=== PATIENT | female | born 1990 | race Caucasian/White ===

== ENCOUNTER 2016-09-17 12:05 | Inpatient (IN) | payer MEDICAID ==
[~2016-09-17] VITALS: Ht 172.7 cm; Wt 59.4 kg
[~2016-09-17 12:05] MED LIST: CIPR-260 PO; QUET100T33 PO
[2016-09-17 12:29] VITALS: BP 122/71; PULSE 111; RESP 18; TEMP 97.9; O2SAT 99
--- NOTE | 2016-09-17 13:40 | NUR ---
Patient to ER bed 5 to gown for evaluation. Side rails up Report given to Phillip DORANTES.
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
[2016-09-17 14:37] LABS: BASOPHILS % (AUTO) 0.5 % (0.0-2.0); EOSINOPHILS # (AUTO) 0.3 K/uL (0.0-0.4); EOSINOPHILS % (AUTO) 4.1 % (0.0-4.0); HEMOGLOBIN 12.7 g/dL (12.0-16.0); LYMPHOCYTES # (AUTO) 2.1 K/uL (1.0-5.5); LYMPHOCYTES % (AUTO) 25.3 % (20.5-51.5); MEAN CORPUSCULAR HEMOGLOBIN 30 pg (27-31); MEAN CORPUSCULAR HGB CONC 33 % (32-36); MEAN CORPUSCULAR VOLUME 90 fL (79.0-98.0); MONOCYTES # (AUTO) 0.6 K/uL (0.0-1.0); MONOCYTES % (AUTO) 7.4 % (1.7-9.3); NEUTROPHILS # (AUTO) 5.2 K/uL (1.8-7.7); NEUTROPHILS % (AUTO) 62.7 % (40.0-70.0); PLATELET COUNT (AUTO) 231 K/uL (130-430); RED CELL DISTRIBUTION WIDTH 13.1 % (9.0-15.0); WHITE BLOOD COUNT (AUTO) 8.2 K/uL (4.8-10.8)
[2016-09-17 14:49] LABS: ACETAMINOPHEN < 1 ug/mL (1-30); ANION GAP 3 (5-15); CALCIUM 8.8 mg/dL (8.4-11.0); CHLORIDE 111 mmol/L (98-107); GLUCOSE 84 mg/dL (70-99); POTASSIUM 3.5 mmol/L (3.5-5.1); SODIUM SERUM 142 mmol/L (136-145); UREA NITROGEN, BLOOD 11 mg/dL (8-21)
[2016-09-17 14:54] LABS: ALANINE AMINOTRANSFERASE 26 U/L (12-78); ASPARTATE AMINOTRANSFERASE 22 U/L (10-37); SALICYLATE 2 mg/dL (3-30); TOTAL BILIRUBIN 0.4 mg/dL (0.0-1.0); TOTAL PROTEIN, SERUM 7.1 g/dL (6.4-8.3)
[2016-09-17 14:56] LABS: GFR AFRICAN AMERICAN 110 mL/min (>90)
--- NOTE | 2016-09-17 15:00 | NUR ---
Pt calm, cooperative, denies c/o pain or discomfort, no needs verbalized at this time.
[2016-09-17 15:02] LABS: ALCOHOL, BLOOD 10 mg/dL (<10)
[2016-09-17] MEDS ORDERED: HALOPERIDOL LACTATE 5 MG/ML VIAL IM ONE (15:15)
[2016-09-17 15:23] LABS: BILIRUBIN,URINE NEGATIVE (NEGATIVE); BLOOD, URINE 3+ (NEGATIVE); COLOR,URINE YELLOW (YELLOW); GLUCOSE,URINE NEGATIVE (NEGATIVE); KETONES,URINE NEGATIVE (NEGATIVE); LEUKOCYTE ESTERASE ,URINE TRACE (NEGATIVE); NITRITE, URINE NEGATIVE (NEGATIVE); PROTEIN URINE NEGATIVE (NEGATIVE); UROBILINOGEN,URINE 0.2 (0.2-1.0)
[2016-09-17 15:33] LABS: CLARITY/URINE HAZY (CLEAR)
[2016-09-17 15:35] LABS: BACTERIA,URINE FEW /HPF (None Seen); MUCUS,URINE None Seen /LPF (None Seen); RBC,URINE 0-3 /HPF (0-3); URINE AMORPHOUS PHOSPHATES 3+ /HPF (None Seen)
[2016-09-17 15:36] LABS: BARBITURATE, URINE NEGATIVE (NEG <=200); BENZODIAZEPINE, URINE NEGATIVE (NEG <=150); CANNABINOID, URINE NEGATIVE (NEG <=50); COCAINE, URINE NEGATIVE (NEG <=150); METHAMPHETAMINES SCREEN,URINE NEGATIVE (NEG <=500); OPIATE, URINE NEGATIVE (NEG <=100); PHENCYCLIDINE SCREEN,URINE NEGATIVE (NEG <=25); UR TRICYCLIC ANTIDEPRESSANTS NEGATIVE (NEG <=300); URINE AMPHETAMINE POSITIVE (NEG <=500); URINE METHADONE NEGATIVE (NEG <=200); URINE OXYCODONE SCREEN NEGATIVE (NEG <=100); URINE PROPOXYPHENE SCREEN NEGATIVE (NEG <=300)
[2016-09-17] MEDS ORDERED: LORazepam 2 MG/ML VIAL (FOR ER USE) IVP ONE (15:45)
--- NOTE | 2016-09-17 16:15 | NUR ---
Pt to CT via stretcher.
--- NOTE | 2016-09-17 16:28 | NUR ---
Pt returns from CT in stable condition. No needs verbalized at this time.
--- NOTE | 2016-09-17 16:30 | NUR ---
Pt calm, cooperative, denies c/o pain or discomfort, no needs verbalized at this time.
[2016-09-17] MEDS ORDERED: cefTRIAXone 1 GM IVPB PREMIX 50 ML IV ONE (17:15)
--- NOTE | 2016-09-17 18:00 | NUR ---
Pt resting quietly with eyes closed. Respirations even and non-labored.
--- NOTE | 2016-09-17 19:10 | NUR ---
Pt report given to JOSE E Spears.
--- NOTE | 2016-09-17 20:28 | NUR ---
pt's father, , called at [phone] to ask if he is able to pick the pt up, stated that " I don't want to pick her up, there is no other person to pick her up. We have restraint order against her." then hung up. No other person avaiable according to pt
--- NOTE | 2016-09-17 21:08 | NUR ---
pt in bed , appeared resting comfortably. VSS, will continue to monitor
--- NOTE | 2016-09-17 22:15 | NUR ---
Pt in bed, appeared resting comfortably. Will continue to monitor
--- NOTE | 2016-09-17 23:45 | NUR ---
Care attended, needs assessed. Pt stated she feels comfortable at this time
--- NOTE | 2016-09-18 00:02 | NUR ---
pt in bed appeared resting comfortably. No sign of distress
--- NOTE | 2016-09-18 01:30 | NUR ---
Pt given food and refreshment upon request. no distress at this time
--- NOTE | 2016-09-18 02:45 | NUR ---
VSS, pt in bed resting comfortably.
--- NOTE | 2016-09-18 04:47 | NUR ---
No distress noted at this time
--- NOTE | 2016-09-18 07:00 | NUR ---
Patient on continous video monitor at nurses station.
--- NOTE | 2016-09-18 07:17 | NUR ---
Clarita red in [facility] - 09/18/16 at 1015 by ANA Stable condition, ate safety breakfast tray.
--- NOTE | 2016-09-18 07:20 | NUR ---
Laying in bed, stable. No suicidal or homicidal ideation per patient or noted. Patient calm and cooperative.
--- NOTE | 2016-09-18 08:21 | NUR ---
Sleeping in bed, rise and fall of chest noted, monitoring closely.
--- NOTE | 2016-09-18 10:00 | NUR ---
Patient attempted to leave ER through ambulance exit, patient agreed to return to room with ease, Dr. Magana spoke with patient. Security called. Remaining with patient for safety. No suicidal or homicidal ideation per patient or noted. Patient calm and cooperative.
--- NOTE | 2016-09-18 10:03 | NUR ---
Security at bedside, remaining with patient.
--- NOTE | 2016-09-18 10:10 | NUR ---
PET personnel evaluating patient. Security at bedside. Patient calm and cooperative.
--- NOTE | 2016-09-18 10:30 | NUR ---
Note neda in EDM - 09/18/16 at 1123 by ANA PET personnel placed patient on hold due to danger to self. No suicidal or homicidal ideation per patient or noted. Patient calm and cooperative. Security called to wand patient.
--- NOTE | 2016-09-18 10:45 | NUR ---
PET personnel placed patient on hold due to danger to self. No suicidal or homicidal ideation per patient or noted. Patient calm and cooperative. Room inspected and full suicide precautions in place. Suicide risk/lethality asssessment, patient observation status assessment and patient and room/enviroment safety checklist documented and placed in chart (see for full precautions). Security called to wand patient.
--- NOTE | 2016-09-18 10:47 | NUR ---
Patient remains on continuous video monitor.
--- NOTE | 2016-09-18 10:50 | NUR ---
Per Dr. Magana, IV to remain for precautionary measure. Patient not attempting to manipulate site. Continous monitoring.
--- NOTE | 2016-09-18 11:26 | NUR ---
Security present to wand patient, no contraband found.
--- NOTE | 2016-09-18 12:28 | NUR ---
Safety tray (regular diet) ordered for lunch for patient. Okay with .
--- NOTE | 2016-09-18 12:48 | NUR ---
Patient ate 100% of lunch tray, removed immediately after. No suicidal or homicidal ideation per patient or noted. Patient calm and cooperative
--- NOTE | 2016-09-18 14:20 | NUR ---
Patient sleeping in bed, arousable to name. No distress noted.
--- NOTE | 2016-09-18 15:00 | NUR ---
Laying in bed, calm and cooperative. No suicidal or homicidal ideation per patient or noted.
--- NOTE | 2016-09-18 15:43 | NUR ---
Patient states does not take any medications at home.
--- NOTE | 2016-09-18 15:55 | NUR ---
Patient will be admitted to care of Dr. Watson. Will go to ICU 4. Belongings list completed. Summary report printed. Report given at bedside to Renaldo DORANTES
--- NOTE | 2016-09-18 16:15 | NUR ---
ADMIT FROM ER ADULT FEMALE ADMITTED FROM ER TO ICU RM 4. AWAKE, ALERT, ORIENTED. CONVERSATION IS FRAGMENTED, STATES PEOPLE "HAVE BEEN STICKING THINGS UP THERE". TALKS ALMOST CONTINUALLY. HAD AN 3 WEEKS AGO AND NOW "PEOPLE HAVE BEEN STICKING THINGS INTO MY BREASTS." HAS BEEN AT A "MISSION" THAT "THEY DON'T HAVE ANYBODY IN MY AGE GROUP." DENIES PAIN AT THIS TIME. ORIENTED TO CALL-LIGHT AND ROOM. REQUESTED CANDY, INFORMED THAT I WILL ASK DIETARY FOR CAKE FOR HER TO EAT AT DINNER. ASSISTED UP TO BATHROOM TO URINATE.
[2016-09-18 17:00] VITALS: BP 131/72; PULSE 76; RESP 20; TEMP 98.7
[2016-09-18 17:02] VITALS: BP 131/72; PULSE 76; RESP 20; TEMP 98.7
--- NOTE | 2016-09-18 17:30 | NUR ---
OOB OOB TO COMMODE W ASSIST, GAIT IS STEADY. VOIDING WITHOUT DIFFICULTY, NO C/O BURNING. SAT AT EDGE OF BED FOR MEAL. ABLE TO FEED SELF, NO DIFFICULTY SWALLOWING.
--- NOTE | 2016-09-18 17:36 | NUR ---
Note neda in ED - 09/18/16 at 1737 by ANA Patient eat 100% of lunch tray, removed immediately after. No suicidal or homicidal ideation per patient or noted. Patient calm and cooperative
[2016-09-18] MEDS: cefTRIAXone 1 GM in D5W 50 ML IV SCH (18:30)
[2016-09-18] MEDS ORDERED: LORazepam 2 MG/ML VIAL IVP PRN ×2 (18:45)
[2016-09-18 19:00] VITALS: BP 112/73; PULSE 63; RESP 20; TEMP 98.2; O2SAT 99
--- NOTE | 2016-09-18 19:10 | NUR ---
REPORT REPORT GIVEN TO NIGHT NURSE. RESTING QUIETLY.
--- NOTE | 2016-09-18 19:30 | NUR ---
VS PT IS HERE FOR OBSERVATION AND IS NOT ON THE MONITOR, VS WILL BE Q4HR. Addendum: 09/19/16 at 0331 by Barbara Molina RN CORRECTION: PT IS HERE FOR DIRECT OBSERVATION
--- NOTE | 2016-09-18 19:30 | NUR ---
ASSESSMENT PT IS HERE FOR DIRECT OBSERVATION, NOT ON SUICIDE WATCH, ICU SHIFT ASSESSMENT WILL BE DONE ONCE PER SHIFT.
--- NOTE | 2016-09-18 19:53 | NUR ---
Called Dr. Dutta for consult. Nurse is aware.
--- NOTE | 2016-09-18 20:00 | NUR ---
pt.assessed.mother providing further history;medical,social,psych.pt.followed mother,nursing out of room. appears hyper vigilant.pt.presents hallucinations:presents questions with no basis in reality.i am reorienting pt.to place,time,event.pt.returned to the bed.iv access:located in the lt.antecubital.iv access locked. call light placed w/in pt's reach.
[2016-09-18 20:01] VITALS: BP 112/73; PULSE 63; RESP 20; TEMP 98.7
[2016-09-18] MEDS ORDERED: cefTRIAXone 1 GM IVPB PREMIX 50 ML IV ONE (20:03)
--- NOTE | 2016-09-18 20:30 | NUR ---
pt.ambulated to the toilet:unassisted but supervised.curtain drawn to provide privacy:nursing able to visually assess the activity of the pt.curtained opened fully.pt.returned to bed:supervised gait.pt.requested snacks.i have procured and provided the snacks;i mentioned to the pt.snacks are available to her throught the shift.pt.understood and appreciated the information.call light place w/in the pt's reach.
[2016-09-18] MEDS: DOXYCYCLINE HYCLATE 100 MG CAPSULE PO SCH (20:34)
[2016-09-18] MEDS ORDERED: DOXYCYCLINE HYCLATE 100 MG CAPSULE ONE (20:39)
--- NOTE | 2016-09-18 21:00 | NUR ---
pt.ordered to recieve rocephin;ivpb,vibramycin:po.henry;bradlyg-supervisor engine assembly assisted in procuring the medications. i have applied an iv extention to iv access:i provided the objective of the iv access extention to the pt. prior to applying the devise.pt.has remain calm;affect.i have administered rocephin ivpb,vibramycin po and have provided the medicinal explanation for the medications.pt.attentive,amenable to receive the medications.
--- NOTE | 2016-09-18 22:30 | NUR ---
pt.ambulated to the toilet:gait supervised.curtain drawn to provide privacy.nursing able to visually assess the activity of the pt.curtain opened fully.pt.returned to the bed;gait supervised.no request at this hour.call light placed w/in the pt's reach.
--- NOTE | 2016-09-19 | NUR ---
pt.assessed.pt.presents quiescent affect;calm,asleep.v/s refused per pt.o2 via room air.no distress /discomfort manifested.iv access:remains Located :lt.antecubital.call light w/in pt's reach.
--- NOTE | 2016-09-19 01:15 | NUR ---
pt.ambulated to the toilet.gait assessed.curtain drawn for privacy;able to visually assess activity of pt. pt.returned to the bed;unassisted;nursing supervised return.pt.consumed po liquids.returned to sleep. inquired if the pt.presents any request:pt.nodded head:gesturing no.call light palced w/in pt's reach.
--- NOTE | 2016-09-19 02:00 | NUR ---
ASSUMED CARE ASSUMED CARE OF PT, REPORT RECEIVED AT BEDSIDE FROM JOSE E RDZ.
[2016-09-19 04:00] VITALS: BP 104/68; PULSE 71; RESP 18; TEMP 99.6; O2SAT 97
[2016-09-19 06:54] LABS: BASOPHILS % (AUTO) 0.5 % (0.0-2.0); EOSINOPHILS # (AUTO) 0.3 K/uL (0.0-0.4); HEMATOCRIT 38.3 % (36-48); HEMOGLOBIN 13.2 g/dL (12.0-16.0); LYMPHOCYTES # (AUTO) 2.1 K/uL (1.0-5.5); LYMPHOCYTES % (AUTO) 34.3 % (20.5-51.5); MEAN CORPUSCULAR HEMOGLOBIN 31 pg (27-31); MEAN CORPUSCULAR HGB CONC 35 % (32-36); MEAN CORPUSCULAR VOLUME 91 fL (79.0-98.0); MONOCYTES # (AUTO) 0.6 K/uL (0.0-1.0); MONOCYTES % (AUTO) 9.2 % (1.7-9.3); NEUTROPHILS # (AUTO) 3.1 K/uL (1.8-7.7); PLATELET COUNT (AUTO) 206 K/uL (130-430); RED BLOOD CELL COUNT(AUTO) 4.23 MIL/uL (4.2-6.2); RED CELL DISTRIBUTION WIDTH 12.9 % (9.0-15.0)
[2016-09-19 06:58] LABS: WHITE BLOOD COUNT (AUTO) 6.1 K/uL (4.8-10.8)
--- NOTE | 2016-09-19 07:21 | NUR ---
CLOSING ALL NEEDS MET. ENDORSED CARE TO DAY NURSE JOSE E RAINES.
[2016-09-19 07:23] LABS: ALBUMIN 3.5 g/dL (3.4-4.8); CALCIUM 8.6 mg/dL (8.4-11.0); CREATININE 0.79 mg/dL (0.55-1.30); FREE T4 (FREE THYROXINE) 0.7 ng/dL (0.6-1.6); POTASSIUM 4.1 mmol/L (3.5-5.1); THYROID STIMULATING HORMONE 0.21 uIu/mL (0.34-4.82); TOTAL BILIRUBIN 0.2 mg/dL (0.0-1.0); TOTAL PROTEIN, SERUM 6.5 g/dL (6.4-8.3)
[2016-09-19 08:00] VITALS: BP 113/62; PULSE 71; RESP 18; TEMP 98.1; O2SAT 97
--- NOTE | 2016-09-19 08:00 | NUR ---
ASSESSMENT Patient in bed, Alert and responds well. Verbalizes needs. Vital signs within normal limits. Patient was able to ambulate without assistance. No apparent distress.Patient admitted with complaint of pelvic pain. Patient denies discomfort at this hour. Advised patient to increase fluids for bladder xray.
--- NOTE | 2016-09-19 10:29 | NUR ---
MD Dr. Watson came in and examine.
--- NOTE | 2016-09-19 11:03 | NUR ---
consult for dr. bruce called spoke to maddie dialed [phone]
[2016-09-19 11:34] LABS: FREE T4 (FREE THYROXINE) 0.7 ng/dL (0.6-1.6); THYROID STIMULATING HORMONE 0.18 uIu/mL (0.34-4.82)
[2016-09-19 12:00] VITALS: BP 100/60; PULSE 60; RESP 16; TEMP 99; O2SAT 97
[2016-09-19] MEDS: DOXYCYCLINE HYCLATE 100 MG CAPSULE PO SCH ×2 (12:40→21:11)
--- NOTE | 2016-09-19 13:00 | NUR ---
NUTRITION Patient ate lunch and consumed 100% of the meal.
[2016-09-19 16:00] VITALS: BP 113/69; PULSE 66; RESP 15; TEMP 98.6; O2SAT 96
--- NOTE | 2016-09-19 16:00 | NUR ---
ASSESSMENT Patient was feeling anxious and worried. She wanted to go outside and smoke cigarettes. Advised patient to eat some snack instead of smoking. Verbalized agreement to conversation. Stated shes having flashbacks. Vital signs within normal limits. Continued monitoring for self harm.
[2016-09-19] MEDS: cefTRIAXone 1 GM in D5W 50 ML IV SCH (18:03)
--- NOTE | 2016-09-19 18:10 | NUR ---
DIET. SERVED DINNER TRAY, EAGERLY SAT UPRIGHT WHILE IN BED, APPETITE GOOD, NEEDS ATTENDED, CONTINUE TO MONITOR.
--- NOTE | 2016-09-19 19:45 | NUR ---
PM ASSESSMENT PT A/OX4, CONFUSED AT TIMES, EASILY AROUSABLE AND COOPERATIVE. NO DISTRESS. PT HAS BATHROOM PRIVILEGES. AMBULATES W/ STEADY GAIT. SKIN INTACT. IV SITE ON LT AC 20G SL, INTACT AND PATENT. PT ON DIRECT OBSERVATION. POC DISCUSSED, PT STATED UNDERSTANDING. SAFETY PRECAUTIONS IN PLACE, WILL CONTINUE TO MONITOR.
[2016-09-19 20:00] VITALS: BP 101/50; PULSE 62; RESP 18; TEMP 99.6; O2SAT 96
[2016-09-20] VITALS: BP 100/52; PULSE 55; RESP 16; TEMP 98.5; O2SAT 98
--- NOTE | 2016-09-20 01:30 | NUR ---
RN ROUNDS PT SLEEPING, CHEST RISING AND FALLING, PT COOPERATIVE. SAFETY PRECAUTIONS IN PLACE, WILL CONTINUE TO MONITOR.
[2016-09-20 04:00] VITALS: BP 119/62; PULSE 55; RESP 16; TEMP 99.8; O2SAT 95
--- NOTE | 2016-09-20 07:09 | NUR ---
CLOSING ALL NEEDS MET. ENDORSED CARE TO DAY NURSE JOSE E RAINES.
[2016-09-20 08:00] VITALS: BP 99/71; PULSE 60; RESP 18; TEMP 99.3; O2SAT 97
--- NOTE | 2016-09-20 08:00 | NUR ---
AM ASSESSMENT. PT SEEN GETTING BACK TO BED FROM THE COMMODE. SHE STOPPED BY HER BED WHEN APPROACHED. PROVIDED CLEAN SHEETS, GOWN, WET TOWELS FOR HYGIENE, "I WANT TO GET MY LUGGAGE", "I HAVE MY MONEY THERE", PT STATED. PT HAS THOUGHT OF GOING HOME. EDUCATED PT ON PLAN OF CARE. PT CALMLY WENT TO BED THEN PICKED UP THE TOWELS.
[2016-09-20] MEDS: DOXYCYCLINE HYCLATE 100 MG CAPSULE PO SCH ×2 (08:36→21:00)
--- NOTE | 2016-09-20 10:09 | NUR ---
Social Service Note: Pt referred to social services director by nursing for suicide risk. Pt was placed on a 5150 by PET social media assistant for Danger to Self and Gravely Disabled Adult. Pt is not currently medically clear and has no order to be transferred. Pt is [facility] Presumptive; pt will need to be transferred to an inpatient psychiatric facility that accepts [facility]. Pt's 5150 was written 09/18/16 at 1030. PIPE WRAPPING MACHINE OPERATOR will remain available and will assist with pt's transfer once medically clear.
--- NOTE | 2016-09-20 11:09 | NUR ---
Pt sleeping Pt. remains calm with eyes closed. No signs of distress noted. Rise and fall of chest noted.
[2016-09-20 12:00] VITALS: BP 106/6; PULSE 65; RESP 18; TEMP 98.7; O2SAT 97
--- NOTE | 2016-09-20 14:06 | NUR ---
Social Service Note Received discharge to psychiatric facility order. Currently working on finding an accepting facility.
--- NOTE | 2016-09-20 14:17 | NUR ---
NURSING. PT. ALERT AND RESTING IN BED. PT. DENIES PAIN AND ASKED FOR AFTERNOON SNACK. PATIENT PROVIDED WITH 2 OUNCES OF OJ AND SOME CRACKERS. PT. HAS NO COMPLAINTS OR DISCOMFORT.
--- NOTE | 2016-09-20 15:21 | NUR ---
Auto Parts Clerk Note FOUNDER PRESIDENT AND CEO phoned all [facility] accepting facilities. None had beds available other than [facility], p [phone] f [phone]. They have had several discharges today and are in the process of intake review. FOUNDER PRESIDENT AND CEO faxed patient's paperwork. [facility] should know by 7pm. FOUNDER PRESIDENT AND CEO requested they phone ICU nurses' station [phone] with acceptance status. FOUNDER PRESIDENT AND CEO also notified Cande in Administration. She approved patient going to contracted facility, [facility] p [phone] f [phone], if not accepted at [facility]. FOUNDER PRESIDENT AND CEO faxed patient's information to [facility]. Phoned [facility] on will call,[phone]. Packet placed in nurses' station. Addendum: 09/20/16 at 1548 by Lor Dimas LCSW Discussed all above with nurse and solar thermal technician, in addition that hold will at 10:30 am tomorrow and a new hold will be needed if patient is not discharged by then.
--- NOTE | 2016-09-20 15:50 | NUR ---
NURSING. GENERAL HANDLING SUPERVISOR CAME AND INFORMED STAFF THAT PT PROBABLY BE TRANSFERRED TO [facility] IF THEY CAN ACCEPT HER. APPROACHED PT CALMLY AND MADE PT AWARE OF THE PLAN. PT DID NOT WANT TO BE DISCHARGED TO A MENTAL HOSPITAL. SHE GOT OUT OF BED. PULLED OUT HER IV.
[2016-09-20 16:00] VITALS: BP 100/62; PULSE 66; RESP 18; TEMP 98.7; O2SAT 97
--- NOTE | 2016-09-20 16:18 | NUR ---
RESTLESSNESS PT. STARTING TO GET RESTLESS AND VERBALIZES THAT SHE 'WANTS TO GO OUT OF THE HOSPITAL'. PT. PULLED OUT IV LINE HERSELF AND INSISTED THAT SHE NEEDS TO GET OUT. RN EXPLAINED TO PATIENT WHAT NEEDS TO BE DONE AND WHAT NEEDS TO HAPPEN BEFORE SHE CAN BE DISCHARGED. PT. VERBALIZED UNDERSTANDING AND STAYED SITED ON HER BED FOR A WHILE BUT STARTING TO STAND UP AND WALKING AROUND THE RUN AGAIN.
[2016-09-20] MEDS ORDERED: LORazepam 2 MG/ML VIAL IM PRN (16:45)
[2016-09-20] MEDS ORDERED: LORazepam 1 MG TABLET PO PRN (16:45)
--- NOTE | 2016-09-20 17:20 | NUR ---
LOC. PT OBSERVED TO BE LYING ON HER SIDE. FOOD TRAY SERVED. SHE SAT UP AND EAGERLY OPENED FOOD CONTAINER.
--- NOTE | 2016-09-20 18:15 | NUR ---
LOC. PT CALM AT THIS TIME. CONTINUOUS VISUAL MONITORING DONE.
--- NOTE | 2016-09-20 18:50 | NUR ---
TRANSFER TO HOSPITAL. CALLED [facility]. SPOKE WITH KARLA, DAY TIME GEODESY TEACHER. SHE SAID THAT THE REJECT OPENER STAFF WILL GIVE US A CALL BACK FOR UPDATE ON TRANSFER.
--- NOTE | 2016-09-20 19:56 | NUR ---
[place]AND[place] security guards came to wand patient. Patient was calm and went back to bed.
--- NOTE | 2016-09-20 20:05 | NUR ---
AGITATED: Patient became very agitated when told that she is going to be moved to medsur unit. Patient demanding to speak to her doctor and wanting to know when she can go home. Pt also insisting to smoke some cigarettes but staff explained that she cannot smoke then pt became even more agitated, almost shouting that we can call police on her and she does not care. Security at bedside.
--- NOTE | 2016-09-20 20:15 | NUR ---
TRANSFER: Patient transferred to room 101A via wheelchair by MT and RN without incident. Patient in no acute distress or SOB upon transfer. Patient is still very anxious about the cigarette. Report given to JOSE E Ashraf.
--- NOTE | 2016-09-20 20:16 | NUR ---
RECEIVED PATIENT FROM ICU PATIENT IS A/OX3. NO SIGNS OF DISTRESS. BREATHING IS NON LABORED. VITAL SIGNS ARE STABLE. NO COMPLAINTS OF PAIN. PATIENT IS IN BED RESTING. PATIENT REFUSES IV. PATIENT INSTRUCTED TO CALL FOR ASSISTANCE. SITTER IS AT BEDSIDE. WILL CONTINUE TO MONITOR.
--- NOTE | 2016-09-20 20:18 | NUR ---
DO NOTES PATIENT TRANSFERRED FROM ICU-4 TO ROOM 101A. PATIENT PANICKING CAUSE SHE IS ON A 5150 HOLD. PATIENT HAS LOTS OF ANXIETY AND REQUESTING FOR A CIGARETTE.
--- NOTE | 2016-09-20 20:31 | NUR ---
DO NOTES KELTON WASHINGTON RN TOOK VITALS SIGNS AND PATIENT REQUESTED FOR APPLE JUICE AND I GAVE HER 2 APPLE JUICES. AND ICE.
--- NOTE | 2016-09-20 20:45 | NUR ---
DO NOTES PATIENT WAS GIVEN HYGIENE STUFF TO RINSE HER MOUTH OFF WITH AND A WARM BLANKET TO STAY COMFORTABLE.
--- NOTE | 2016-09-20 21:00 | NUR ---
DO NOTES PATIENT LYING COMFORTABLY IN BED. NO SIGNS OF DISTRESS NOTED.
--- NOTE | 2016-09-20 21:15 | NUR ---
DO NOTES PATIENT IN BED SLEEPING COMFORTABLY. NO SIGNS OF DISTRESS NOTED.
--- NOTE | 2016-09-20 21:30 | NUR ---
DO NOTES PATIENT ASLEEP IN BED PATIENTLY. NO SIGNS OF DISTRESS NOTED.
--- NOTE | 2016-09-20 21:45 | NUR ---
DO NOTES PATIENT SLEEPING IN BED COMFORTABLY WITH THE BLANKET COVERING HER.
--- NOTE | 2016-09-20 22:00 | NUR ---
DO NOTES PATIENT ASLEEP IN BED, NO SIGNS OF DISTRESS NOTED.
--- NOTE | 2016-09-20 22:15 | NUR ---
DO NOTES PATIENT SLEEPING COMFORTABLY IN SUPINE POSITION.
--- NOTE | 2016-09-20 22:30 | NUR ---
DO NOTES PATIENT SLEEPING COMFORTABLY AND TURNED TO HER RIGHT SIDE. NO SIGNS OF DISTRESS NOTED.
--- NOTE | 2016-09-20 22:36 | NUR ---
ROUNDS PATIENT IS IN BED SLEEPING. NO SIGNS OF DISTRESS. BREATHING IS NON LABORED. SAFETY MEASURES ARE IN PLACE. SITTER IS PRESENT. WILL CONTINUE TO MONITOR.
--- NOTE | 2016-09-20 22:45 | NUR ---
DO NOTES PATIENT CONTINUES TO SLEEP COMFORTABLY ON HER RIGHT SIDE. NO SIGNS OF DISTRESS NOTED.
--- NOTE | 2016-09-20 23:00 | NUR ---
DO NOTES PATIENT IS IN BED CALMLY SLEEPING.
--- NOTE | 2016-09-20 23:15 | NUR ---
DO NOTES PATIENT SLEEPING COMFORTABLE IN BED. NO SIGNS OF DISTRESS NOTED.
--- NOTE | 2016-09-20 23:30 | NUR ---
DO NOTES PATIENT STABLE IN BED SLEEPING CALMLY. NO SIGNS OF ANY DISTRESS.
--- NOTE | 2016-09-20 23:45 | NUR ---
DO NOTES PATIENT IN SUPINE POSITION SLEEPING IN BED.
--- NOTE | 2016-09-21 | NUR ---
DO NOTES PATIENT IN BED SLEEPING COMFORTABLY. NO SIGNS OF DISTRESS NOTED.
--- NOTE | 2016-09-21 00:15 | NUR ---
DO NOTES PATIENT COMFORTABLY IN BED ASLEEP. NO SIGNS OF DISTRESS.
--- NOTE | 2016-09-21 00:30 | NUR ---
DO NOTES PATIENT RESTING COMFORTABLY IN BED ASLEEP.
--- NOTE | 2016-09-21 00:45 | NUR ---
DO NOTES PATIENT STABLE IN BED SLEEPING COMFORTABLY.
--- NOTE | 2016-09-21 00:48 | NUR ---
ROUNDS PATIENT IS IN BED SLEEPING. NO SIGNS OF DISTRESS. BREATHING IS NON LABORED. CALL LIGHT IS WITHIN REACH. SAFETY MEASURES ARE IN PLACE. SITTER IS PRESENT. WILL CONTINUE TO MONITOR.
[2016-09-21 00:54] VITALS: BP 91/66; PULSE 69; RESP 16; TEMP 97.4; O2SAT 97
--- NOTE | 2016-09-21 01:00 | NUR ---
DO NOTES WOKE UP PATIENT TO DO VITAL SIGNS. AFTER THAT PATIENT WENT BACK TO SLEEP RIGHT AWAY AND IS RESTING COMFORTALE IN BED.
--- NOTE | 2016-09-21 01:15 | NUR ---
DO NOTES PATIENT STABLE AND CALM WHILE SLEEPING IN BED. NO SIGNS OF DISTRESS NOTED.
--- NOTE | 2016-09-21 01:27 | NUR ---
CONSULTS FOR DR. AGUILERA CALLED IN UNIT SECTARY NOTIFIED THE EXCHANGE THAT DR. AGUILERA HAS A CONSULT WITH PATIENT.
--- NOTE | 2016-09-21 01:27 | NUR ---
CONSULT: I FOLLOWED UP CONSULT FOR DR. AGUILERA I SPOKE WITH MICHAELA CONWAY ICU NURSE CALLED CONSULT ON 09/18/16 AT 1953 MICHAELA CONWAY SAID YES CONSULT WAS ENTERED THAT DAY 09/18/16. DR. AGUILERA HAS NOT COME TO SEE PATIENT YET. SO MICHAELA CONWAY RE-ENTER CONSULT AGAIN TODAY 09/21/16 @ 0127.
--- NOTE | 2016-09-21 01:30 | NUR ---
DO NOTES PATIENT COUGHED A COUPLE TIMES AND TOSSED AND TURNED IN BED AND WENT BACK TO SLEEP.
--- NOTE | 2016-09-21 01:45 | NUR ---
DO NOTES PATIENT CURRENTLY SLEEPING ON HER RIGHT SIDE.
--- NOTE | 2016-09-21 01:59 | NUR ---
ROUNDS PATIENT IS IN BED SLEEPING. NO SIGN OF DISTRESS. BREATHING IS NON LABORED. SAFETY MEASURES ARE IN PLACE. CALL LIGHT IS WITHIN REACH. SITTER IS PRESENT. WILL CONTINUE TO MONITOR.
--- NOTE | 2016-09-21 02:00 | NUR ---
DO NOTES PATIENT TURNED AND IS CURRENTLY SLEEPING ON HER LEFT SIDE. NO DISTRESS NOTED.
--- NOTE | 2016-09-21 02:15 | NUR ---
DO NOTES PATIENT CURRENTLY SLEEPING ON HER RIGHT SIDE. PATIENT SHOWS NO SIGNS OF DISTRESS.
--- NOTE | 2016-09-21 02:30 | NUR ---
DO NOTES PATIENT GOT UP AND WENT TO USE THE RESTROOM TO URINATE THEN WENT BACK TO BED AND FELL ASLEEP.
--- NOTE | 2016-09-21 02:45 | NUR ---
DO NOTES PATIENT STABLE SLEEPING COMFORTABLY IN BED.
--- NOTE | 2016-09-21 03:00 | NUR ---
DO NOTES PATIENT ASLEEP IN HER BED. NO SIGNS OF DISTRESS NOTED.
--- NOTE | 2016-09-21 03:15 | NUR ---
DO NOTES PATIENT STABLE RESTING COMFORTABLE IN BED. NO SIGNS OF DISTRESS NOTED.
--- NOTE | 2016-09-21 03:30 | NUR ---
DO NOTES PATIENT CURRENTLY SLEEPING ON HER RIGHT SIDE.
--- NOTE | 2016-09-21 03:45 | NUR ---
DO NOTES PATIENT STABLE SLEEPING. NO SIGNS AND SYMPTOMS OF SHOWING ANY DISTRESS.
--- NOTE | 2016-09-21 03:53 | NUR ---
ROUNDS PATIENT IS IN BED SLEEPING. NO SIGNS OF DISTRESS. BREATHING IS NON LABORED. SAFETY MEASURES ARE IN PLACE. CALL LIGHT IS WITHIN REACH. WILL CONTINUE TO MONITOR.
--- NOTE | 2016-09-21 04:00 | NUR ---
DO NOTES PATIENTSTABLE SLEEPING COMFORTABLY IN BED.
[2016-09-21 04:09] VITALS: BP 108/61; PULSE 60; RESP 14; TEMP 98; O2SAT 100
--- NOTE | 2016-09-21 04:11 | NUR ---
DO NOTES PATIENT ASLEEP. DID 4 O'CLOCK VITALS PATIENT STABLE. ENDORSING PATIENT TO MARIE WHILE I GO TO LUNCH BREAK.
--- NOTE | 2016-09-21 04:27 | NUR ---
D.O. Note Repositioned self from left side to supine position. Quiet. No agitation noted. Breathing without difficulty with visible chest rise and fall. Safety precautions in place. Call light placed within reach.
--- NOTE | 2016-09-21 04:44 | NUR ---
D.O. Note Lying on left side. Respirations unlabored. Calm, no agitation exhibited. Safety precautions in place. Call light placed within reach.
--- NOTE | 2016-09-21 05:00 | NUR ---
DO NOTES PATIENT IS STABLE AND CALM AND IS SLEEPING COMFORTABLY. NO SIGNS OF DISTRESS NOTED.
--- NOTE | 2016-09-21 05:15 | NUR ---
DO NOTES PATIENT HAS BEEN SLEEPING COMFORTABLY THROUGHOUT THE NIGHT. NO SIGNS OR SYMPTOMS OF DISTRESS.
--- NOTE | 2016-09-21 05:30 | NUR ---
DO NOTES PATIENT HAS BEEN SLEEPING ON HER LEFT SIDE. NO SIGNS OF DISTRESS.
--- NOTE | 2016-09-21 05:33 | NUR ---
ROUNDS PATIENT IS IN BED SLEEPING. BREATHING IS NON LABORED. NO SIGNS OF DISTRESS. SAFETY MEASURES ARE IN PLACE. SITTER IS AT BEDSIDE. WILL CONTINUE TO MONITOR.
--- NOTE | 2016-09-21 05:45 | NUR ---
DO NOTES PATIENT HAS BEEN STABLE SLEEPING ON HER LEFT SIDE.
--- NOTE | 2016-09-21 06:00 | NUR ---
DO NOTES PATIENT HAS BEEN STABLE, SHE TURNED OVER TO HER RIGHT SIDE TO BE MORE COMFORTABLE.
--- NOTE | 2016-09-21 06:15 | NUR ---
DO NOTES PATIENT HAS BEEN CALM AND STABLE SLEEPING ON HER RIGHT SIDE.
--- NOTE | 2016-09-21 06:23 | NUR ---
DO NOTES ENDORSING PATIENT TO DAY SHIFT DO ADEBAYO. PATIENT HAS BEEN STABLE AND BEEN SLEEPING COMFORTABLY. NO DISTRESS NOTED.
--- NOTE | 2016-09-21 06:29 | NUR ---
COMMUNICATION WITH [facility] SPOKE TO CHARGE NURSE LEMUEL (# [phone]), REGARDING INFORMATION ON PATIENT TRANSFER. LEMUEL STATED THAT PATIENT COULD NOT BE ACCEPTED DUE TO HOLD EXPIRING ON 09-21-16 IN THE 10:00 HOUR. WHEN ASK IF THE BED WOULD BE AVAILABLE ONCE HOLD WAS RENEWED, LEMUEL STATED THAT THE PATIENT'S CASE WOULD HAVE TO BE REVIEWED AGAIN.
--- NOTE | 2016-09-21 06:32 | NUR ---
patient is sleeping
--- NOTE | 2016-09-21 07:05 | NUR ---
CLOSING NOTES PATIENT IS IN BED SLEEPING. NO SIGNS OF DISTRESS. BREATHING IS NON LABORED. SAFETY MEASURES ARE IN PLACE. SITTER IS AT BEDSIDE. WILL ENDORSE ALL CARE TO THE MORNING NURSE.
--- NOTE | 2016-09-21 07:22 | NUR ---
patient got up to the bathroom
--- NOTE | 2016-09-21 07:40 | NUR ---
am notes: report given at bedside. with sitter for direct observation,pt on 5150 hold. sleeping during rounds.
--- NOTE | 2016-09-21 07:42 | NUR ---
COMMUNICATION WITH LEANDRO LEYVA SPOKE TO CONG AT [facility]. CONG STATED THAT SHE SPOKE TO DR. AGUILERA AND HE STATED THAT HE WILL ACCEPT PATIENT AND RESUME HOLD ONCE PATIENT ARRIVES TO [facility]. REPORT WAS GIVEN TO CONG. MORNING NURSE JOSE E MUNOZ SPOKE TO CONG REGARDING THE MATTER.
--- NOTE | 2016-09-21 07:42 | NUR ---
patient went back to bed after using the restroom , and i offered her the breakfast tray and she refuse .
[2016-09-21 07:59] VITALS: BP 95/53; PULSE 73; RESP 19; TEMP 96.9; O2SAT 97
--- NOTE | 2016-09-21 07:59 | NUR ---
took patient vitals
--- NOTE | 2016-09-21 08:05 | NUR ---
report report given to kamini intake nurse from [place].
--- NOTE | 2016-09-21 08:06 | NUR ---
patient is been bulk picker by the ambulance to go to [facility]
[2016-09-21 08:10] VITALS: BP 95/53; PULSE 73; RESP 18; TEMP 96.8; O2SAT 97
--- NOTE | 2016-09-21 08:20 | NUR ---
rn notes: spoke to yakov adamson,grandfather of the patient and aware of the patient's transfer to [place].
[2016-09-21] MEDS: DOXYCYCLINE HYCLATE 100 MG CAPSULE PO SCH (08:34)
--- NOTE | 2016-09-21 08:39 | NUR ---
transfer notes: transitional care packets given to [facility] ambulance staff.patient aware of the transfer to [place] but hesitant to go but signed the transfer acknowledgement because of 5150 on hold. patient was transported to [place] in stable condition on 5150 on hold.
[2016-09-21] MEDS ORDERED: MUPIROCIN 2% TOPICAL OINTMENT 22 GM TP SCH (09:00)
[2016-09-21 19:14] LABS: CHLAMYDIA TRACHOMATIS NAA Negative (Negative); NEISSERIA GONORRHOEAE NAA Negative (Negative)
== END 2016-09-21 08:40 | DRG 751 ==
LOC: SED 12:05 → SIC 09-18 15:37 → SMU 09-20 20:15
PROVIDERS: ADMIT Internal Medicine; ATTEND Internal Medicine
DX: F23 Brief psychotic disorder (principal); N39.0 Urinary tract infection, site not specified; F19.10 Other psychoactive substance abuse, uncomplicated; F15.10 Other stimulant abuse, uncomplicated; N83.201 Unspecified ovarian cyst, right side; N83.202 Unspecified ovarian cyst, left side; Z59.0 Homelessness; Z97.5 Presence of (intrauterine) contraceptive device
CPT/HCPCS: 36415; 70450-TC; 76830-TC; 76857; 80053; 80307; 81000-TC; 81025; 84439; 84443-TC; 84480; 84703; 85025; 86592; 87081; 87491; 87591; 93005; 96365; 96372; 99285; G0480; G0481; G0482; J0696; J1630; J2060; J7040; J7060

== ENCOUNTER 2019-05-13 07:10 | Emergency (ER) | payer SELFPAY ==
[~2019-05-13] VITALS: Ht 167.6 cm; Wt 54.4 kg
[~2019-05-13 07:10] MED LIST changes: -QUET100T33 PO
--- NOTE | 2019-05-13 07:38 | NUR ---
Patient to ER bed h1 to gown for evaluation. Side rails up.
--- NOTE | 2019-05-13 07:39 | NUR ---
Pt taryn NAM for ok to book
[2019-05-13 07:40] VITALS: BP_SYST 123
--- NOTE | 2019-05-13 07:40 | NUR ---
HEATHER Gandara at bedside examining patient.
[2019-05-13 07:47] VITALS: BP_SYST 123
--- NOTE | 2019-05-13 07:47 | NUR ---
Patient given written and verbal discharge instructions and verbalizes understanding. ER MD discussed with patient the results and treatment provided. Patient in stable condition. ID arm band removed. no Rx of given. Patient educated on pain management and to follow up with PMD. Pain Scale 0 Opportunity for questions provided and answered. Medication side effect fact sheet provided.Pt in police custody
== END 2019-05-13 07:47 ==
LOC: SED 07:10
DX: Z02.89 Encounter for other administrative examinations (principal); Z79.899 Other long term (current) drug therapy
CPT/HCPCS: 99283

== ENCOUNTER 2022-06-11 15:09 | Emergency (ER) | payer SELFPAY ==
[~2022-06-11] VITALS: Ht 157.5 cm; Wt 52.2 kg
[2022-06-11 15:19] VITALS: BP_SYST 140
[2022-06-11] MEDS ORDERED: cephALEXin 500 MG CAPSULE PO ONE (15:30)
[2022-06-11] MEDS ORDERED: IBUPROFEN 800 MG TABLET PO ONE (15:30)
[2022-06-11] MEDS ORDERED: IBUP-1971 PO (15:31)
[2022-06-11] MEDS ORDERED: CEPH250C PO (15:31)
[2022-06-11 18:30] VITALS: BP_SYST 140
== END 2022-06-11 18:30 | disposition home or self-care (01) ==
LOC: SED 15:09
DX: L03.011 Cellulitis of right finger (principal); R22.31 Localized swelling, mass and lump, right upper limb; Z79.899 Other long term (current) drug therapy
CPT/HCPCS: 99283